=== PATIENT | female | born 1975 | race Two or more races ===

== ENCOUNTER 2016-08-31 10:11 | Emergency (ER) | payer MEDICAID ==
[2016-08-31 10:45] LABS: SPECIFIC GRAVITY 1.015 (1.001-1.030); URINE BILIRUBIN NEGATIVE (NEGATIVE); URINE BLOOD NEGATIVE (NEGATIVE); URINE GLUCOSE (UA) NEGATIVE (NEGATIVE); URINE LEUKOCYTE ESTERASE NEGATIVE (NEGATIVE); URINE NITRITE NEGATIVE (NEGATIVE); URINE PROTEIN NEGATIVE (NEGATIVE); URINE UROBILINOGEN NORMAL (0-1 mg/dl)
[2016-08-31 10:55] LABS: HCG,QUALITATIVE URINE NEGATIVE
[2016-08-31 10:59] LABS: URINE APPEARANCE CLEAR; URINE COLOR YELLOW
[2016-08-31] MEDS ORDERED: PANTOPRAZOLE SODIUM 40 MG VIAL IV ONE (11:03)
[2016-08-31] MEDS ORDERED: ONDANSETRON 4 MG/2ML 2 ML VIAL ONE (11:03)
[2016-08-31] MEDS ORDERED: SODIUM CHLORIDE 0.9% 1,000 ML ONE (11:03)
[2016-08-31] MEDS ORDERED: KETOROLAC TROMETHAMINE 30 MG/ML 1 ML VIAL ONE (11:03)
[2016-08-31 11:36] LABS: ABSOLUTE NEUTROPHIL COUNT 4.8 K/mm3 (1.8-7.7); BASO # 0.1 K/mm3 (0.0-0.2); BASO % 0.6 % (0.2-1.0); EOS # 0.1 (0.0-0.5); EOS % 1.1 % (0.9-2.9); HEMATOCRIT 30.8 % (37.0-47.0); HEMOGLOBIN 9.7 gm/l (12.0-16.0); IMM NEUT% 0.4 % (0-1); LYMPH # 2.5 (1.0-4.8); LYMPH % 32.1 % (15-45); MEAN CORPUSCULAR HEMOGLOBIN 19.2 pg (27.0-31.0); MEAN CORPUSCULAR HGB CONC 31.5 g/dl (33.0-37.0); MEAN PLATELET VOLUME 10.5 fl (7.4-10.4); MONO # 0.4 (0.0-0.8); NEUT % 60.8 % (43-75); PLATELET COUNT 370 K/mm3 (130-400); RED CELL DISTRIBUTION WIDTH 18.9 % (11.5-14.5)
[2016-08-31 11:48] LABS: ALB/GLOB RATIO 1.3 (>1.0); CALCIUM 8.8 mg/dL (8.6-10.3)
== END 2016-08-31 12:34 | disposition home or self-care (01) ==
LOC: ED 10:11
DX: R10.9 Unspecified abdominal pain (principal); M54.9 Dorsalgia, unspecified; R19.7 Diarrhea, unspecified
CPT/HCPCS: 83690; 81025; 85025; 80053; 81003; 96375 ×2; 99283 ×2; 96374; 96361; C9113; J1885; J2405; J7030